=== PATIENT | male | born 1975 | race Caucasian/White ===

== ENCOUNTER 2017-01-30 12:22 | Emergency (ER) | payer SELFPAY ==
[~2017-01-30] VITALS: Ht 167.6 cm; Wt 80.0 kg
[2017-01-30 12:24] VITALS: BP 121/75; PULSE 81; RESP 13; TEMP 98.7; O2SAT 98
--- NOTE | 2017-01-30 13:44 | PD ---
HPI Chief Complaint: Laceration/Skin Injury Time Seen by Provider: 13:44 Travel History International Travel<30 days: No Contact w/Intl Traveler<30days: No Traveled to known affect area: No History of Present Illness HPI 41-year-old male presents emergency Department with complaint of laceration to the palmar aspect of his left hand from a piece of plastic from a headlight. Reports being up-to-date on his tetanus vaccination. Denies paresthesias, loss of sensation, decreased range of motion, decreased strength to the left hand. Has applied a bandage to control bleeding. Has not taken any medications to alleviate his symptoms. Rates pain 8/10. Describes as a throbbing sensation. No known relieving factors. Pain is aggravated with palpation and movement of the hand. No known allergies. Has no other medical complaints. No other modifying factors or associated signs and symptoms. PFSH Past Medical History Medical History: Denies Significant Hx Immunizations Current: No Tetanus Vaccination: Unknown Influenza Vaccination: Yes Past Surgical History Other Surgery: Yes (LAC REPAIR - LIP ) Social History Alcohol Use: No Tobacco Use: No Substance Use: No Allergies-Medications (Allergen,Severity, Reaction): Coded Allergies: No Known Allergies (Verified Allergy, Unknown, 01/30/17) Reported Meds & Prescriptions Reported Meds & Active Scripts Active Bactrim DS (Sulfamethoxazole-Trimethoprim) 800-160 Mg Tab 1 Tab PO BID 7 Days Ibuprofen 800 Mg Tab 800 Mg PO Q6HR PRN Review of Systems Except as stated in HPI: all other systems reviewed are Neg Physical Exam Narrative GENERAL: Well-nourished, well-developed male patient, in no acute distress SKIN: Warm and dry. Palmar aspect of left hand to the thenar eminence with approximately 2 cm laceration; fingers with full range of motion, both flexion and extension; sensory intact; thumb with good opposition. Left upper extremity supple and non-tense with 2+ radial pulse and sensory intact without erythema or edema. HEAD: Atraumatic. Normocephalic. EYES: Pupils equal and round. No scleral icterus. No injection or drainage. ENT: Mucosa pink and moist. Airway patent. NECK: Trachea midline. CARDIOVASCULAR: Regular rate. RESPIRATORY: No accessory muscle use. GASTROINTESTINAL: Flat. MUSCULOSKELETAL: No obvious deformities. No clubbing. No cyanosis. No edema. NEUROLOGICAL: Awake and alert. Oriented 3. No obvious cranial nerve deficits. Motor grossly within normal limits. Normal speech. PSYCHIATRIC: Appropriate mood and affect; insight and judgment normal. Data Data Last Documented VS Vital Signs Date Time Temp Pulse Resp B/P (MAP) Pulse Ox O2 Delivery O2 Flow Rate FiO2 01/30/17 12:24 98.7 81 13 121/75 (90) 98 Orders Orders Lidocaine 1% Inj (50 Ml) (Xylocaine 1% I (01/30/17 13:45) Ed Discharge Order (01/30/17 14:37) MDM Medical Decision Making Medical Screen Exam Complete: Yes Emergency Medical Condition: Yes Medical Record Reviewed: Yes Differential Diagnosis Laceration, contusion, abrasion Narrative Course 41-year-old male with a left hand laceration. Tetanus is up-to-date. See my procedure note for laceration repair. Bactrim prescribed for home. Inserted patient to return to the emergency department or follow-up with primary care provider in 7-10 days for suture removal. Instructed patient to follow up with primary care provider. Patient verbalizes understanding and agreement with treatment plan. Patient is medically cleared and stable for discharge. Discussed reasons to return to the emergency department. Patient agrees with treatment plan. The patients vital signs are stable and the patient is stable for outpatient follow-up and treatment. Patient discharged home, stable and in no acute distress. Procedures Procedure Narrative LACERATION LOCATION: Palmar, thenar eminence aspect of the left hand LENGTH: 2 cm NUMBER OF STITCHES/NEGRO: 4 simple interrupted sutures REPAIR: The area of the laceration was prepped with Betadine and sterilely draped. The laceration was infiltrated with Percent lidocaine. The wound was copiously irrigated and explored without evidence of foreign body, tendon injury or neurovascular injury. The wound was closed using 4-0 Prolene. This was a single layer repair. A sterile dressing was applied. The patient was advised to keep the dressing clean and dry. Patient tolerated the procedure well. Diagnosis Primary Impression: Laceration of left hand Qualified Codes: S61.412A - Laceration without foreign body of left hand, initial encounter Referrals: Hand Surgeon Primary Care Physician Patient Instructions: Care For Your Stitches (ED), General Instructions, Laceration (ED) Additional Instructions: Keep area clean and dry Limit left hand activity to decrease risk of sutures coming undone done; use sling for support and to decrease activity Ibuprofen or Tylenol as directed and as needed for pain and inflammation Ice pack to area as needed to decrease pain Return to the emergency department or follow-up with primary care provider in 7- 10 days for suture removal Follow up with primary care provider Return to the emergency department immediately with worsening of symptoms, particularly if reddened streaks up or down the affected extremity from the suture site, fever, numbness/tingling in the affected extremity, loss of sensation in the affected extremity, severe swelling of the affected Med/Other Pt SpecificInfo: Prescription(s) given Scripts Sulfamethoxazole-Trimethoprim (Bactrim DS) 800-160 Mg Tab 1 TAB PO BID for Infection for 7 Days, #14 TAB 0 Refills Prov: Chani Farias 01/30/17 Ibuprofen (Ibuprofen) 800 Mg Tab 800 MG PO Q6HR Y for PAIN, #20 TAB 0 Refills Prov: Chani Farias 01/30/17 Disposition: 01 DISCHARGE HOME Condition: Stable Chani Farias Jan 30, 2017 13:44
[2017-01-30] MEDS ORDERED: IBUP800T23 PO ×2 (13:46)
[2017-01-30] MEDS ORDERED: BACT800T5 PO ×2 (13:50)
[2017-01-30] MEDS: LIDOCAINE HCL 1% 50 ML VIAL INFIL ONE ×4 (13:56→13:58)
== END 2017-01-30 14:56 | disposition home or self-care (01) ==
LOC: NEPK 12:22
DX: S61.412A Laceration without foreign body of left hand, initial encounter (principal)
CPT/HCPCS: 12001